=== PATIENT | female | born 1980 | race Caucasian/White ===

== ENCOUNTER 2017-12-08 18:25 | Emergency (ER) | payer MEDICAID ==
[~2017-12-08] VITALS: Ht 5200 cm; Wt 55.0 kg
[~2017-12-08 18:25] MED LIST: ALPR-624 PO; HYDR-3965 PO; MECL12.5 PO; ONDA4TAB59 PO; ONDA4TAB6 PO; SUCR1ORA2 PO
[2017-12-08] MEDS ORDERED: HYDROcodone/acetaminophen 10/325mg tab PO ONE (21:20)
[2017-12-08] MEDS ORDERED: IBUP-1985 PO (21:21)
[2017-12-08 22:07] VITALS: BP 137/93
== END 2017-12-08 22:08 | disposition home or self-care (01) ==
LOC: ER 18:26
DX: M23.92 Unspecified internal derangement of left knee (principal); K21.9 Gastro-esophageal reflux disease without esophagitis; G89.29 Other chronic pain; F12.10 Cannabis abuse, uncomplicated; Z90.49 Acquired absence of other specified parts of digestive tract; Z56.0 Unemployment, unspecified; Z88.8 Allergy status to other drugs, medicaments and biological substances; Z79.899 Other long term (current) drug therapy
CPT/HCPCS: 29505; 73564; 99284

== ENCOUNTER 2018-10-03 09:47 | Emergency (ER) | payer MEDICAID ==
[~2018-10-03] VITALS: Ht 157.5 cm; Wt 57.0 kg
[~2018-10-03 09:47] MED LIST changes: +IBUP-1985 PO
[2018-10-03 09:49] VITALS: BP 142/82
[2018-10-03] MEDS ORDERED: LEVO750T21 PO (10:30)
[2018-10-03] MEDS ORDERED: PRED20TA PO (10:30)
[2018-10-03] MEDS ORDERED: ACET-3067 PO (10:30)
== END 2018-10-03 10:51 | disposition home or self-care (01) ==
LOC: ER 09:49
DX: J01.20 Acute ethmoidal sinusitis, unspecified (principal); K21.9 Gastro-esophageal reflux disease without esophagitis; G89.29 Other chronic pain; F12.90 Cannabis use, unspecified, uncomplicated; Z90.49 Acquired absence of other specified parts of digestive tract; Z98.890 Other specified postprocedural states; Z98.51 Tubal ligation status; Z56.0 Unemployment, unspecified; Z88.8 Allergy status to other drugs, medicaments and biological substances; Z88.5 Allergy status to narcotic agent; Z79.899 Other long term (current) drug therapy
CPT/HCPCS: 99283